=== PATIENT | female | born 1960 | race Caucasian/White ===

== ENCOUNTER 2021-12-05 09:42 | Observation (INO) | payer OTHER, SELFPAY ==
[2021-12-05] VITALS (24 sets, daily range): BP systolic 107–151; BP diastolic 76–101; PULSE 58–95; RESP 7–24; TEMP 36.6–37.4; O2SAT 97–98
--- NOTE | 2021-12-05 10:00 | W.ED.GENAD ---
Discharge Plan Disposition Patient Disposition: HOME Condition: Improving Discharge Details Chief Complaint: GenMedical Clinical Impression: DRESS syndrome, Petechial rash, Non-ST elevation HI (NSTEMI), UTI (urinary tract infection) Admit Date/Time: 12/05/21 15:11 Admit Provider: Toby Tracey Attending Provider: Toby Tracey Primary Care Provider: Unknown,Unknown ED Provider: Malou Garcia Discharge Instructions Activity:: Activity as Tolerated Equipment/Supplies:: No Equipment Needed Diet:: As Tolerated Discharge Orders Discharge Orders: Discharge Order (Routine); Ordered 12/06/21 Ordered By: Darby Barber Discharge Data Discharge Date/Time-TO BE ENTERED AT DEPARTURE: 12/05/21 15:50 Medical Decision Making Patient is a pleasant 61-year-old female presented with chief complaint of rash. She reports that 6 days ago she began having some dysuria, spoke with her primary care yesterday and nitrofurantoin. On the third day of taking the antibiotic, she developed rigors, sweats but no documented fever. She states that the dysuria has resolved but she did experience 2 episodes of incontinence at night which is atypical for her. However, she does report that she did take a sleeping aid which may have led to this. States that subsequently she woke up with a diffuse petechial rash that is since been resolving but does remain on her feet. States that when she initially became sick she had a large amount of vomiting, 1 loose stool. Patient has been traveling and is recently in [place]. She and her significant other did share food and significant other did not become ill. She denies any abdominal pain. No headaches. No visual changes. States that she has been feeling lightheaded over the past 3 days. Denies any chest pain or shortness of breath. Father has history of cardiac disease. Denies any vaginal discharge. With feeling well up until beginning the nitrofurantoin having her UTI with no systemic symptoms prior to this. Patient not anticoagulated, takes simvastatin daily. She denies any hematemesis, melena, hematochezia, hematuria. On exam, patient appears nontoxic. She is hypertensive at 151/101, pulse rate 95. She does appear slightly dry. She has notable petechial rash on the dorsal of both feet which spares the plantar surfaces. She denies any history of STI or new sexual contacts. No palmar rashes. The remaining rash appears to be dissipating although you can notice some small dark in, almost faint bruise-like areas across her torso which patient states had initially looked very similar to what on her feet. She reports that the rash is all been nontender and nonpruritic. No intraoral lesions. Concern at this time for possible reaction to medication. I have considered hemolytic uremic syndrome, dress syndrome, he based on patient's petechial rash that has been quite diffuse. However, is unusual that it is resolving so quickly. With the patient's travel and GI upset, this could be associated with Shiga toxin E. coli. We will hydrate the patient, obtain baseline blood work, EKG. with the patient's lightheadedness, and past family history, I did also consider ACS although patient denies any chest pain or shortness of breath. EKG reviewed by Dr. Menendez. No acute ischemic changes noted. Normal sinus rhythm. Contacted by the lab, patient has a troponin of 289. White count slightly low at 3.8. Hemoglobin hematocrit normal. Eosinophil count 30%. PT, PTT and INR normal. Potassium slightly low at 3.2 which are replenished. Creatinine is elevated at 1.1, do not have any previous for comparison. Will obtain ESR and CRP as well. I have requested consult with cardiology at [facility] for [place]. However, I am to hold off on any anticoagulants with her petechial rash. Her LFTs and platelets are within normal limit but I remain concerned for potential bleeding issue and so that further direction is appropriate Prior to moving forward with any type of antithrombotics. Spoke with Dr. Cardona with cardiology at [facility]. He advised likely not cardiac, recommended likely type 2. Recommended trending troponin. Advised for now, could hold off on any ASA, heparin. Consulted with dermatology, Dr. Vee, and reviewed [facility] case. She will review the case with her attending and call back. Spoke with Dr. Vee again. She advised that we could use antihistamines if patient has symptoms. Advised otherwise, no needed management as patient sounds to be improving. Repeat troponin downtrending. Discussed results, recommendations and diagnosis of likely DRESS syndrome with patient and her . Patient will need admission for continued monitoring of NSTEMI, thought to be type II in setting of DRESS. Will need echo tomorrow. Patient and agree to this plan. Urine was noted to have trace leukocytesterase, rare bacteria. She has no continued symptoms. With her current problems, I am hesitant to put her on abx, will hold off and wait for culture. Consulted with Dr. Tracey regarding admission, he agrees to admission of patient. HPI General Date/Time Provider Initiated Documentation: 12/05/21 10:00. Limitations to Documentation: no limitations. Information obtained by: patient and RN notes reviewed. History of Present Illness 61 year old F presents to the emergency department with the chief complaint of rash to bilateral feet, general malaise, vomiting, rigors, described as moderate, with intensity rated at 1 (patient denies pain at this time). and is localized to the left, right and lower extremity. Patient started experiencing this day(s) (3) and it has been constant (rash intially generalized, improving but present still on feet). No relieving factors improve symptom(s), No exacerbating factors reported . Patient notes diaphoresis, fever/chills, loss of appetite, malaise, nausea/vomiting and rash; denies confusion, chest pain, cough, headaches and shortness of breath. Patient did receive the following treatments prior to arrival, none Related Data Home Medications Medication Instructions Recorded Confirmed simvastatin 10 mg tablet 10 mg PO DAILY 12/05/21 12/05/21 amoxicillin 875 mg-potassium 1 tab PO BID #9 tabs 12/06/21 clavulanate 125 mg tablet fluconazole 200 mg tablet 200 mg PO DAILY #2 tabs 12/06/21 (Diflucan) Previous Rx's Medication Instructions Recorded amoxicillin 875 mg-potassium 1 tab PO BID #9 tabs 12/06/21 clavulanate 125 mg tablet fluconazole 200 mg tablet 200 mg PO DAILY #2 tabs 12/06/21 (Diflucan) Allergies Allergy/AdvReac Type Severity Reaction Status Date / Time nitrofurantoin AdvReac Unverified 12/05/21 23:15 [From Macrobid] General Stated Complaint: GenMedical AHSAN: 3 Review of Systems Constitutional Constitutional: Reports as per HPI and Denies headache(s) Eyes Eyes: Denies change in vision ENT Ears, Nose, Mouth, and Throat: Reports dizziness (lightheaded or off), Denies headache(s) and Reports disequilibrium Cardiovascular Cardiovascular: Reports as per HPI, Denies dyspnea and Denies dyspnea on exertion Respiratory Respiratory: Reports as per HPI, Denies chest congestion, Denies cough, Denies pain on inspiration, Denies pain with cough, Denies dyspnea and Denies dyspnea on exertion Gastrointestinal Gastrointestinal: Reports as per HPI and Denies abdominal pain Musculoskeletal Musculoskeletal: Reports as per HPI and Denies back pain Integumentary/Breasts Skin/Breast: Reports as per HPI Neurologic Neurologic: Reports as per HPI, Reports dizziness (lightheaded or off), Denies headache(s), Reports lack of coordination and Reports disequilibrium PFSH All Active Problems (Updated 12/06/21 @ 16:39 by ROBI Ma) DRESS syndrome (Acute) Petechial rash (Acute) Non-ST elevation HI (NSTEMI) (Acute) UTI (urinary tract infection) (Acute) Pulmonary infiltrates on CXR (Acute) Troponin level elevated (Acute) Discharge planning issues (Acute) DVT prophylaxis (Acute) Rash (Acute) Social History Smoking/Tobacco Use Status: Never Smoking risk assessment performed?: Yes Alcohol Intake: current Alcohol Intake frequency: a few times a week Drug use: Never Substance use type: does not use Do you feel safe at home: Yes Do you feel safe in your relationship?: Yes Exam Const General: cooperative, not healthy appearing, comfortable, no acute distress, well developed and ill appearing acutely Nutritional Appearance: well nourished and overweight Orientation: alert, awake and oriented x3 HENMT Head: normal to inspection Ears: hearing grossly normal bilaterally Mouth: oral mucosae normal (no rash intraorally) and moist mucous membranes Eyes General: appearance normal, both eyes and all related structures Neck Neck: normal visual inspection, no lymphadenopathy and no meningeal signs Chest Chest: normal inspection of the chest (faint, bruise like, small areas of discoloration diffusely across torso), normal palpation of entire chest wall and no crepitus Resp Effort & Inspection: normal respiratory effort, able to speak in complete sentences and no respiratory distress Auscultation: clear to auscultation bilaterally, no rales, no rhonchi and no wheezes Cardio Rate: regular rate Rhythm: regular rhythm Heart Sounds: S1 normal and S2 normal GI Inspection: normal to inspection (same faint discolorations), no edema and non-distended Palpation: soft, no hepatosplenomegaly, not firm, no guarding, not rigid and nontender Auscultation: normal bowel sounds Back/Spine/Pelvis Back: no CVA tenderness Thoracic/Lumbar Spine: thoracic and lumbar spine normal to inspection (same faint discolorations) Skin Rashes: rashes noted (petechial rash to dorsal bilateral feet, spares soles) and other (faint bruise-like rash torso, proximal upper extremity, BLE) Neuro General: patient alert, patient awake and patient oriented x3 Cognition: normal cognition Speech: speech normal Gait: normal gait Extrem General: abnormal to inspection (petechial rash dorsal aspect bilateral feet), capillary refill normal, no pedal edema, no calf tenderness and normal gait Psych Appearance: grossly normal and well kempt Mental Status: mental status grossly normal Speech and Movement: speech and movement normal Course Vital Signs Vital signs: Vital Signs Temperature 36.6 C 12/05/21 09:46 Pulse 95 H 12/05/21 09:46 Respiratory Rate 14 12/05/21 09:46 Blood Pressure 151/101 H 12/05/21 09:46 Pulse Oximetry 98 12/05/21 09:46 Temperature 36.6 C 12/05/21 09:46 Temperature Source Temporal Artery Scan 12/05/21 09:46 Pulse 95 H 12/05/21 09:46 Respiratory Rate 14 12/05/21 09:46 Respiratory Effort Non-Labored 12/05/21 09:52 Respiratory Depth Normal 12/05/21 09:52 Blood Pressure 151/101 H 12/05/21 09:46 Blood Pressure Position Supine 12/05/21 09:46 Pulse Oximetry 98 12/05/21 09:46 Oxygen Delivery Method Room Air 12/05/21 09:46 Oxygen Flow Rate 0 12/05/21 09:46 Pain Level 0 12/05/21 09:46 PAWSS Have you Been Recently Intoxicated or Drunk Within the Last 30 days?: Yes Have you Ever Experienced Previous Episodes of Alcohol Withdrawal?: No Have you ever Experienced Withdrawal Seizures?: No Have you ever Experienced Delirium Tremens(DT)s?: No Have you ever undergone Alcohol Rehabilitation Treatment (i.e, inpt ot outpatient treatment programs)?: No Have you ever Experienced Blackouts?: No Have you ever Combined Alcohol with other Downers within the last 90 days?: No Have you ever Combined Alcohol with any other Substance of Abuse during the last 90 days?: No Positive Blood Alcohol level on Presentation? [PCS.BAL]: No Evidence of Increased Autonomic Activity (i.e. HR>120, tremor, sweating, agitation, nausea)?: No Result: 1
--- NOTE | 2021-12-05 10:15 | RT.EKG_ITS ---
APPROVED REPORT Exam: Resting ECG Reason for Exam: lightheaded Patient Location: E HR:62 bpm ECG Measurements Heart Rate 62 AXIS OR 112 P 31 QRSd 99 QRS 85 QT 440 T 64 QTc 448 Conclusion Sinus rhythm...normal P axis, V-rate 60- 99 Low voltage, precordial leads...precordial leads <1.0mV. Sinus. Normal axis. No STEMI. I have reviewed and interpreted ECG and agree with software generated interpretation.
[2021-12-05 10:44] LABS: HCT 40.5 % (36.0-46.0); HGB 13.3 g/dL (11.2-15.7); MCH 30.3 pg (27.0-33.0); MCHC 32.8 % (32.0-36.0); MCV 92 fL (80-95); MPV 10.7 fL (8.0-11.0); Platelet Count 206 10^3/uL (130-400); RBC 4.39 10^6/uL (3.93-5.22); RDW 12.8 % (11.7-14.6); RDW-SD 43.5 fL; WBC 3.98 10^3/uL (4.4-10.8)
[2021-12-05] MEDS: Normal Saline 1,000 ML 1000 ML IV (10:45)
[2021-12-05 10:58] LABS: PTT Activated 26.5 sec (21.0-27.5); Prothrombin Time 10.5 sec (9.3-11.0)
[2021-12-05 11:01] LABS: ALT 46 U/L (14-59); AST 28 U/L (15-37); Albumin 3.1 g/dL (3.4-5.0); Alkaline Phosphatase 111 U/L (46-116); Anion Gap 9.4 mmol/L (3-11); BUN 22 mg/dL (7-18); Bilirubin, Total 0.3 mg/dL (0.2-1.0); CO2 26.6 mmol/L (21.0-32.0); CREATININE 1.1 mg/dL (0.55-1.02); Calcium 8.7 mg/dL (8.5-10.1); Chloride 102 mmol/L (98-107); Estimated GFR 50.84 (mL/min/1.73m2); Glucose 113 mg/dL (74-106); Magnesium 2.2 mg/dL (1.8-2.4); Potassium 3.2 mmol/L (3.5-5.1); Sodium 138 mmol/L (136-145); Total Protein 6.7 g/dL (6.4-8.2)
[2021-12-05 11:03] LABS: Troponin I 289 ng/L (<or=60)
[2021-12-05 11:04] LABS: Absolute Eosinophil Count 1.19 10^3/uL (0.0-0.7); Absolute Lymphocyte Count 1.67 10^3/uL (1.2-3.4); Absolute Monocyte Count 0.16 10^3/uL (0.1-0.8); Absolute Neutrophil Count 0.96 10^3/uL (1.2-6.7); Atypical Lymphocytes % 8
[2021-12-05 11:05] LABS: Diff Comment Manual Differential; RBC Morphology Normal
[2021-12-05 11:28] LABS: ESR 41 mm/hr (0-30)
[2021-12-05] MEDS: POTASSIUM CHLORIDE 20 MEQ/100 ML BAG 50 MEQ IVPB ×2 (11:37→20:03)
[2021-12-05 11:42] LABS: C-Reactive Protein 9.33 mg/dL (0.0-0.3)
[2021-12-05 11:47] LABS: Bilirubin Negative (Negative); Blood Negative (Negative); Clarity Clear (Clear); Glucose Negative (Negative); Ketones Negative (Negative); Leukocyte Esterase Trace (Negative); Nitrite Negative (Negative); Specific Gravity 1.015 (1.005-1.025); Urobilinogen 0.2 EU/dL (Up TO 0.2)
[2021-12-05 11:53] LABS: Bacteria Rare HPF (Negative); C & S Indicated? No/Sq. Contamination; Casts Negative LPF (Negative); Crystals Negative HPF (Negative); Epithelial Cells Moderate HPF (Negative); Mucus Negative (Negative); RBC Negative HPF (0-2); WBC 0-2 HPF (0-5)
--- NOTE | 2021-12-05 14:00 | DI.RAD_ITS ---
Exam(s) XR CHEST 2V PA LATERAL EXAM: XR CHEST 2V PA LATERAL CLINICAL HISTORY: elevated troponin. TECHNIQUE: 2D digital imaging was performed. COMPARISON: No exams were available for comparison FINDINGS: 2 views: Heart size is normal. The mediastinum is not widened. There is nodular infiltrate versus scarring in the left lung base adjacent to the left cardiac border , within the inferior lingular segment. No pleural effusion. There is also an asymmetric density in the right suprahilar region measuring 2.2 x 1.2 cm, possibly s ignificant nodule versus asymmetric density in the costochondral junction of the 1st rib. IMPRESSION: Bilateral lung findings as described above. Comparison a prior outside images would be helpful. Guzman thompson, consider follow-up CT scan DATA REPOSITORY: RADIATION DOSE DELIVERED:
[2021-12-05 14:01] LABS: Troponin I 268 ng/L (<or=60)
--- NOTE | 2021-12-05 14:15 | RT.EKG_ITS ---
APPROVED REPORT Exam: Resting ECG Reason for Exam: second ekg Patient Location: E HR:57 bpm ECG Measurements Heart Rate 57 AXIS AK 109 P 29 QRSd 97 QRS 86 QT 453 T 70 QTc 443 Conclusion Sinus bradycardia...rate< 60 Low voltage, precordial leads...precordial leads <1.0mV. Sinus. Normal axis. No STEMI. I have reviewed and interpreted ECG and agree with software generated interpretation.
[2021-12-05 14:22] LABS: Source Nasal/Nares
--- NOTE | 2021-12-05 14:53 | DI.VRAD_ITS ---
PROCEDURE INFORMATION: Exam: XR Chest Exam date and time: 12/05/2021 2:26 PM Age: 61 years old Clinical indication: Other: Elevated troponin TECHNIQUE: Imaging protocol: Radiologic exam of the chest. Views: 2 views. COMPARISON: No relevant prior studies available. FINDINGS: Airway: Patent Lungs: Unremarkable. No consolidation. Pleural spaces: Unremarkable. No pleural effusion. No pneumothorax. Heart/Mediastinum: Unremarkable. No cardiomegaly. Bones/joints: No acute skeletal abnormality or aggressive osseous lesion. IMPRESSION: No acute findings. Dictated and Authenticated by: Jeremiah Ashley MD. Ordering:BRENNEN Westfall MD
[2021-12-05 15:13] LABS: COVID-19 PCR Negative (Negative)
--- NOTE | 2021-12-05 15:20 | W.PM.HP.N ---
Date of service: 12/05/21 Time of Service: 15:20 Assessment and Plan Assessment and plan (1) Troponin level elevated: Status: Acute Assessment and plan: 289; 268; trend No CP, no sob (2) Rash: Status: Acute Assessment and plan: Assess Antihistamines (3) DVT prophylaxis: Status: Acute Assessment and plan: Teds (4) Discharge planning issues: Status: Acute Assessment and plan: Home after echo depending on lab & echo results. discussed with Dr Tracey History of Present Illness History of Present Illness Chief Complaint: Rash Consults Consult date: 12/06/21 Narrative: This is a very pleasant awake, alert and oriented, 61-year-old female patient that presented to [facility] ED with the chief complaint of a diffuse rash. 6 days prior she began having dysuria, she spoke with her PCP and was started on nitrofurantoin.? On the third day of taking the antibiotic, she developed rigors, sweats, but denies any fever. Yesterday she states she woke up with a diffuse petechia, non-tender, non-puriticl rash with some mild vomiting. Today she reports the dysuria has totally resolved, but notes something concerning and new to her is two episodes of urinary incontinence at night. She does report haven taken a sleeping aid both of those times. The rash has since been resolving but does remain on her dorsal feet.? She and her significant other did share food and significant other did not become ill.? She denies any abdominal pain.? No headaches.? No visual changes.? States that she has been feeling lightheaded over the past 3 days.? Denied any chest pain or shortness of breath.? Father has history of cardiac disease.? Denies any vaginal discharge.? She denies any hematemesis, melena, hematochezia, hematuria. She denies any history of STI or new sexual contacts.? No palmar rashes.?EKG was reviewed by Dr. Menendez.? No acute ischemic changes noted.? Normal sinus rhythm. Troponin of 289.? White count slightly low at 3.8.? Hemoglobin hematocrit normal.? Eosinophil count 30%.? PT, PTT and INR normal.? Potassium slightly low at 3.2 which was replenished.? Creatinine is elevated at 1.1, do not have any previous for comparison.? ESR , CRP 9.33. The ED provider [place] [facility] [place], they recommended type 1, trend troponin and did not recommend anticoagulation or aspirin. ? Her LFTs and platelets are within normal limit. She denies any history of STI or new sexual contacts. Will check CPK and myoglobin, urine is not dark or concentrated. Echo tomorrow. Repeat labs 12/06/21. Consult cardiology. She is being admitted for observation to the medical surgical unit. discussed with Dr Tracey Review of Systems All systems reviewed & are unremarkable except as noted in HPI and below PFSH All Active Problems (Updated 12/05/21 @ 17:28 by Darby Barber NP) Troponin level elevated (Acute) Discharge planning issues (Acute) DVT prophylaxis (Acute) Rash (Acute) Social History Smoking/Tobacco Use Status: Never Smoking risk assessment performed?: Yes Alcohol Intake: current Alcohol Intake frequency: a few times a week Drug use: Never Substance use type: does not use Do you feel safe at home: Yes Do you feel safe in your relationship?: Yes Meds Allergies and Home Medications Allergies Allergy/AdvReac Type Severity Reaction Status Date / Time No Known Allergies Allergy Unverified 12/05/21 09:51 Home Medications Medication Instructions Recorded Confirmed Type simvastatin 10 mg tablet 10 mg PO DAILY 12/05/21 12/05/21 History Exam Narrative Exam Narrative: This patient appears nontoxic.? BP 123/76, pulse rate 58.? She has notable petechial rash on the dorsum of both feet which spares the plantar surfaces.? No palmar rashes.? The remaining rash appears to be dissipating, there are some dark areas across her torso that look like faint brusiing, she reports her torso looked like her feet. No intraoral lesions, PERRL. Const General: cooperative, healthy appearing, comfortable and no acute distress Nutritional Appearance: average body habitus and well nourished Orientation: alert, awake and oriented x3 HENMT Head: normal to inspection Eyes General: appearance normal, both eyes and all related structures Neck Neck: normal visual inspection Chest Chest: normal inspection of the chest (except for faint rash ) Resp Effort & Inspection: normal respiratory effort and able to speak in complete sentences Auscultation: clear to auscultation bilaterally Cardio Jugular venous pressure: no JVD Rate: regular rate Rhythm: regular rhythm Heart Sounds: S1 normal and S2 normal GI Inspection: normal to inspection Auscultation: normal bowel sounds Back/Spine/Pelvis Back: no CVA tenderness Thoracic/Lumbar Spine: thoracic and lumbar spine normal to inspection Pelvis: no pain with anterior-posterior compression Skin Rashes: rashes noted (pitechial rash to bilat dorsal feet; torso) Hair: normal Nails: normal Neuro General: patient alert, patient awake, patient oriented x3 and no focal motor deficits Cranial Nerves: CN's II-XI intact bilaterally Cognition: normal cognition Speech: speech normal Gait: normal gait Motor: muscle tone normal throughout Sensory Exam: no sensory deficits noted Extrem General: normal to inspection Right upper extremity: normal to inspection Left upper extremity: normal to inspection Right lower extremity: normal to inspection (except dorsal foot rash), full ROM and normal capillary refill Left lower extremity: normal to inspection (except dorsal foot rash), full ROM and normal capillary refill Results Labs Result diagrams: 12/05/21 10:37 12/05/21 10:37 Labs: Laboratory Results - last 24 hr 12/05/21 12/05/21 12/05/21 10:37 10:37 10:37 WBC 3.98 L RBC 4.39 Hgb 13.3 Hct 40.5 MCV 92 MCH 30.3 MCHC 32.8 RDW 12.8 Plt Count 206 MPV 10.7 Immature Gran % 0.0 Neutrophils % 24.0 Lymphocytes % 34.0 Atypical Lymphs % 8 Monocytes % 4.0 Eosinophils % 30.0 Basophils % 0.0 Nucleated RBC % 0.0 Absolute Neutrophils 0.96 L Absolute Lymphocytes 1.67 Absolute Monocytes 0.16 Absolute Eosinophils 1.19 H Absolute Basophils 0.00 RBC Morphology Normal ESR PT 10.5 INR 1.0 APTT 26.5 Sodium 138 Potassium 3.2 L Chloride 102 Carbon Dioxide 26.6 Anion Gap 9.4 BUN 22 H Creatinine 1.1 H Estimated GFR/1.73 m2 50.84 Glucose 113 H Calcium 8.7 Magnesium 2.2 Total Bilirubin 0.3 AST 28 ALT 46 Alkaline Phosphatase 111 Troponin I 289 H* C-Reactive Protein Total Protein 6.7 Albumin 3.1 L Urine Color Urine Clarity Urine pH Ur Specific [place] Urine Protein Urine Ketones Urine Blood Urine Nitrite Urine Bilirubin Urine Urobilinogen Ur Leukocyte Esterase Urine RBC Urine WBC Ur Epithelial Cells Urine Crystals Urine Bacteria Urine Casts Urine Mucus Ur Culture Indicated? Urine Glucose COVID-19 Source 12/05/21 12/05/21 12/05/21 10:37 10:37 11:24 WBC RBC Hgb Hct MCV MCH MCHC RDW Plt Count MPV Immature Gran % Neutrophils % Lymphocytes % Atypical Lymphs % Monocytes % Eosinophils % Basophils % Nucleated RBC % Absolute Neutrophils Absolute Lymphocytes Absolute Monocytes Absolute Eosinophils Absolute Basophils RBC Morphology ESR 41 H PT INR APTT Sodium Potassium Chloride Carbon Dioxide Anion Gap BUN Creatinine Estimated GFR/1.73 m2 Glucose Calcium Magnesium Total Bilirubin AST ALT Alkaline Phosphatase Troponin I C-Reactive Protein 9.33 H Total Protein Albumin Urine Color Yellow Urine Clarity Clear Urine pH 6.0 Ur Specific [place] 1.015 Urine Protein Negative Urine Ketones Negative Urine Blood Negative Urine Nitrite Negative Urine Bilirubin Negative Urine Urobilinogen 0.2 Ur Leukocyte Esterase Trace H Urine RBC Negative Urine WBC 0-2 Ur Epithelial Cells Moderate Urine Crystals Negative Urine Bacteria Rare Urine Casts Negative Urine Mucus Negative Ur Culture Indicated? No/Sq. Contamination Urine Glucose Negative COVID-19 Source 12/05/21 12/05/21 13:37 14:17 WBC RBC Hgb Hct MCV MCH MCHC RDW Plt Count MPV Immature Gran % Neutrophils % Lymphocytes % Atypical Lymphs % Monocytes % Eosinophils % Basophils % Nucleated RBC % Absolute Neutrophils Absolute Lymphocytes Absolute Monocytes Absolute Eosinophils Absolute Basophils RBC Morphology ESR PT INR APTT Sodium Potassium Chloride Carbon Dioxide Anion Gap BUN Creatinine Estimated GFR/1.73 m2 Glucose Calcium Magnesium Total Bilirubin AST ALT Alkaline Phosphatase Troponin I 268 H* C-Reactive Protein Total Protein Albumin Urine Color Urine Clarity Urine pH Ur Specific [place] Urine Protein Urine Ketones Urine Blood Urine Nitrite Urine Bilirubin Urine Urobilinogen Ur Leukocyte Esterase Urine RBC Urine WBC Ur Epithelial Cells Urine Crystals Urine Bacteria Urine Casts Urine Mucus Ur Culture Indicated? Urine Glucose COVID-19 Source Nasal/Nares Last Vital Signs Temp 36.6 C 12/05/21 09:46 Pulse 58 L 12/05/21 14:00 Resp 18 12/05/21 14:50 BP 123/76 12/05/21 14:00 Pulse Ox 98 12/05/21 09:46 PAWSS Have you Been Recently Intoxicated or Drunk Within the Last 30 days?: Yes Have you Ever Experienced Previous Episodes of Alcohol Withdrawal?: No Have you ever Experienced Withdrawal Seizures?: No Have you ever Experienced Delirium Tremens(DT)s?: No Have you ever undergone Alcohol Rehabilitation Treatment (i.e, inpt ot outpatient treatment programs)?: No Have you ever Experienced Blackouts?: No Have you ever Combined Alcohol with other Downers within the last 90 days?: No Have you ever Combined Alcohol with any other Substance of Abuse during the last 90 days?: No Positive Blood Alcohol level on Presentation? [PCS.BAL]: No Evidence of Increased Autonomic Activity (i.e. HR>120, tremor, sweating, agitation, nausea)?: No Result: 1
[2021-12-05 17:49] LABS: Lab Add On Test DONE
[2021-12-05 18:20] LABS: Creatine Kinase 152 U/L (26-192)
[2021-12-05 19:07] LABS: Troponin I 246 ng/L (<or=60)
[2021-12-05] MEDS: Lactated Ringers 1,000 ML 75 ML IV (19:20)
[2021-12-05] MEDS: Simvastatin 10 MG TAB PO (20:03)
--- NOTE | 2021-12-06 | DI.CT_ITS ---
Exam(s) CT CHEST WO EXAM: CT CHEST WO CLINICAL HISTORY: nodule on CXR. TECHNIQUE: Multi planar reconstructions were performed. CONTRAST MATERIAL: None COMPARISON: CR,XR XR CHEST 2V PA LATERAL from 12/05/2021 FINDINGS: CHEST: LUNGS: There are mild increased markings in the anterior segment of the right upper lobe, probably co rrespond to the findings on chest radiograph yesterday. There also mild increased markings in the me dial segment of the right middle lobe and lateral basal segment of the right lower lobe. In the opposite-left lung there are mild increased markings in the superior segment of the left lower lobe and lingular segment, lingular segment markings corresponding to what is also seen on chest x-r ay. There also mild pleural based increased markings in the posterior basal segment of the left lowe r lobe. There are no pleural effusions on either side. MEDIASTINUM: There is no obvious hilar nor mediastinal adenopathy. There appear to be nodules in the left thyroid lobe. CARDIAC: Heart size upper normal. There is slight thickening of the inferior pericardium consistent with small amount of pericardial fluid..Caliber of the thoracic aorta is within normal limits. VISUALIZED UPPER ABDOMEN:No adrenal masses. OSSEOUS: No significant osseous lesions.. IMPRESSION: 1. Mild increased markings in both lungs as described above, correspond to the increased markings see n on yesterday's chest x-ray. These have the appearance of mild infiltrates more so than masses. Th ere are no so seated pleural effusions. No obvious hilar nor mediastinal adenopathy. 2. There are no pleural effusions. 3. There appears to be a small pericardial effusion. Heart size is upper normal. RADIATION DOSE DELIVERED: 780.61mGy.cm Total DLP DATA REPOSITORY: All CT scans at this facility are submitted to the National Radiology Data Registry (NRDR) Dose Index Registry (DIR) with the [employer] (ACR). RADIATION OPTIMIZATION: All CT scans at this facility use at least one of these dose optimization te chniques: automated exposure control; mA and/or kV adjustment per patient size (includes targeted exa ms where dose is matched to clinical indication); or iterative reconstruction.
--- NOTE | 2021-12-06 | DI.US_ITS ---
APPROVED REPORT EXAM: Comprehensive 2D, Doppler, and color-flow Echocardiogram Patient Location: In-Patient Room/Bed: [facility] Marketing Account Executive: Lesli Moore RDCS (AE) Indications: Elevated troponin, unexplained rash Other Information Study Quality: Adequate Conclusion Normal left ventricular wall thickness and chamber size. Estimated ejection fraction is 55 to 60%. There are no segmental wall motion abnormalities Normal right ventricular size and systolic function Both atria are normal in size There is no structural or hemodynamically significant valvular disease Estimated right ventricular systolic pressure is normal at 27 mmHg Wall motion Left Ventricle The left ventricle is normal size. The left ventricular systolic function is in the low normal range. The left ventricular ejection fraction is within the low normal range. There is normal left ventricu lar wall thickness. There is normal LV segmental wall motion. There is no ventricular septal defect v isualized. LVEF is 56%. Right Ventricle The right ventricle is normal size. The right ventricular systolic function is normal. The RVSP is 27 .1mmHg. Atria The left atrium size is normal. The right atrium size is normal. The interatrial septum is intact wit h no evidence for an atrial septal defect. Aortic Valve The aortic valve is normal in structure. Aortic valve is trileaflet. There is no aortic valvular sten osis. No aortic regurgitation is present. Mitral Valve The mitral valve is normal in structure. No evidence of mitral valve stenosis. Mild mitral regurgitat ion. Tricuspid Valve The tricuspid valve is normal in structure. There is no tricuspid valve stenosis. Trace tricuspid reg urgitation. Pulmonic Valve The pulmonary valve is normal in structure. There is no pulmonic valvular stenosis. There is no pulmo jay valvular regurgitation. Great Vessels The aortic root is normal in size. The ascending aorta is normal in size. The ascending aorta is norm al in size. Aortic arch is normal in caliber. IVC is normal in size and collapses >50% with inspirati on. Pericardium There is no pericardial effusion. 2D Dimensions IVSD d PLAX 0.97 cm F: 0.6-1.0 LV Vol A2C d MOD 126.3 mL LVPW d PLAX 0.95 cm F: 0.6 - 1.0 LV Vol A4C d MOD 171.4 mL LVID d PLAX 5.22 cm F: 3.8 - 5.2 LA vol/ BSA A2C s A-L 27.9 mL/m2 LVDs 3.65 cm F: 2.2 - 3.5 LA vol/ BSA A4C s A-L 25.6 mL/m2 Ao Root d 2.70 cm F: 2.7 - 3.3 LA Vol/ BSA Biplane s A-L 27.4 mL/m2 RA Area A4C 13.69 cm2 LA Area A4C s MOD 19.46 cm2 RA Vol/ BSA A4C s A-L 16.5 mL/m2 LA Area A2C s MOD 20.88 cm2 Ao Asc Diam d 3.27 cm F: 2.3 - 3.1 LV EF A4C MOD 56.0 % LV EF Teichholz 56.1 % LV EF A2C MOD 56.0 % LVEF (Byrne's) 55.76 % F: 54 - 74 LV EF Biplane MOD 55.8 % LV Volume 108.72 mL F: 46 - 106 SV 84.12 mL LV Volume Index 48.10 mL/m2 F: 29 - 61 SV Index 37.12 mL/m2 LV Vol Biplane MOD 150.9 mL FS 29.50 % M-Mode TAPSE 2.45 cm (M/F) >1.7 LV Diastology MV E' medial 0.116 (>0.07 m/s) E/A Ratio 1.1 LV E/e MED 7.60 (<14) MV E Vmax 0.88 (0.4-1.3 m/s) MV E' lateral 0.108 (>0.1 m/s) MV A Vmax 0.80 (0.4-1.3 m/s) LV E/e LAT 8.15 (<14) MV E/A Ratio 1.04 MV E/E' medial 7.61 MV E/E' lateral 8.18 Aortic Valve LVOT Area 3.47 cm2 AoV Area Vmax 3.09 cm2 LVOT Vmax 1.06 m/s AoV Area/ BSA (Vmax) 1.36 cm2/m2 LVOT Mean Jose. 0.69 m/s CITLALLI Mean Jose. 2.68 cm2 LVOT Peak Grad 4.5 mmHg CITLALLI Mean Jose. Index 1.18 cm2/m2 LVOT Mean Grad 2.2 mmHg LVOT VTI 0.246 m LVOT Diam s 2.10 cm AoV Vmax 1.19 m/s Velocity Ratio 0.89 AoV Mean Jose. 0.89 m/s AoV Peak Grad 5.7 mmHg LVOT SV 85.33 mL AoV Mean Grad 3.5 mmHg AoV VTI 0.268 m AoV Area VTI 3.18 cm2 AoV Area/ BSA (VTI) 1.40 cm/m2 Mitral Valve MV DT 164 (160-240 msec) MR Vmax 5.01 m/s MV PHT 48 msec MR VTI 1.809 m MV Area PHT 4.62 cm2 MR Peak Grad 100.4 mmHg MV VTI 0.320 m MR Mean Grad 77.5 mmHg MV VTI Annulus 0.313 m MR PISA Radius 0.58 cm MV Area VTI 2.62 (4.0-6.0 cm2) MR EROA 0.15 cm2 MR Aliasing Velocity 0.35 m/s MR PISA 2.09 cm2 Pulmonary Valve PV Vmax 0.79 (0.5-1.5 m/s) RVOT Peak Gr. 1.47 mmHg PV Peak Grad 2.5 mmHg RVOT Mean Gr. 0.85 mmHg PV Mean Grad 1.7 mmHg RVOT VTI 0.117 m PV VTI 0.173 m RVOT Vmax 0.61 m/s Tricuspid Valve TR Peak Grad 24.1 mmHg TR Vmax 2.46 m/s RA Pressure 3.00 mmHg RVSP (TR) 27.1 mmHg
[2021-12-06 03:10] VITALS: BP 126/81; PULSE 69; RESP 18; TEMP 36.7; O2SAT 98
[2021-12-06 06:56] VITALS: PULSE 81
[2021-12-06] MEDS: Lactated Ringers 1,000 ML 75 ML IV (06:59)
[2021-12-06 07:04] LABS: Abs Immature Grans 0.01 10^3/uL (0.0-0.06); Absolute Basophil Count 0.04 10^3/uL (0.0-0.2); Absolute Eosinophil Count 1.36 10^3/uL (0.0-0.7); Absolute Lymphocyte Count 2.49 10^3/uL (1.2-3.4); Absolute Monocyte Count 0.38 10^3/uL (0.1-0.8); Absolute Neutrophil Count 1.14 10^3/uL (1.2-6.7); Basophils % 0.7; Eosinophils % 25.1; HCT 37.1 % (36.0-46.0); HGB 11.9 g/dL (11.2-15.7); Immature Grans % 0.2; Lymphocytes % 45.9; MCH 29.8 pg (27.0-33.0); MCHC 32.1 % (32.0-36.0); MCV 93 fL (80-95); MPV 10.5 fL (8.0-11.0); Neutrophils % 21.1; Platelet Count 225 10^3/uL (130-400); RBC 3.99 10^6/uL (3.93-5.22); RDW-SD 44.4 fL; WBC 5.42 10^3/uL (4.4-10.8)
[2021-12-06 07:20] VITALS: BP 126/83; PULSE 62; RESP 16; TEMP 36.8; O2SAT 98
[2021-12-06 07:24] LABS: ALT 36 U/L (14-59); AST 18 U/L (15-37); Alkaline Phosphatase 98 U/L (46-116); BUN 19 mg/dL (7-18); Bilirubin, Total 0.3 mg/dL (0.2-1.0); Calcium 8.7 mg/dL (8.5-10.1); Chloride 105 mmol/L (98-107); Estimated GFR 56.75 (mL/min/1.73m2); Glucose 103 mg/dL (74-106); Magnesium 2.2 mg/dL (1.8-2.4); Potassium 3.9 mmol/L (3.5-5.1); Sodium 139 mmol/L (136-145); Total Protein 6.4 g/dL (6.4-8.2)
[2021-12-06 07:27] LABS: Troponin I 178 ng/L (<or=60)
--- NOTE | 2021-12-06 08:11 | W.CARDCONSUL ---
Date of service: 12/06/21 Time of Service: 08:11 Assessment and Plan Assessment and plan (1) Troponin level elevated: Status: Acute Assessment and plan: Patient has had mild elevated troponin. Her EKG is normal. There were no symptoms suggestive of angina. Reportedly an echocardiogram will be performed today. In the absence of new or concerning findings or symptoms, I think the patient could have an outpatient ischemic evaluation such as a stress echocardiogram Beyond that I have no specific concerns or recommendations History of Present Illness History of Present Illness Chief Complaint: Rash Narrative: This is a 61-year-old woman who presented to the emergency room because of a rash. For unclear reasons, her work-up included a troponin which was mildly elevated. Her EKG was normal. There were no symptoms suggestive of angina. She has no past history of cardiac illness Troponins have been gradually decreasing Only 1 EKG is available for review Consults Consult date: 12/06/21 Requesting physician: Darby Barber Review of Systems Narrative: Patient was not interviewed PFSH All Active Problems (Updated 12/05/21 @ 17:28 by Darby Barber NP) Troponin level elevated (Acute) Discharge planning issues (Acute) DVT prophylaxis (Acute) Rash (Acute) Social History Smoking/Tobacco Use Status: Never Smoking risk assessment performed?: Yes Alcohol Intake: current Alcohol Intake frequency: a few times a week Drug use: Never Substance use type: does not use Do you feel safe at home: Yes Do you feel safe in your relationship?: Yes Exam Narrative Exam Narrative: Patient was not examined Results Last Vital Signs Temp 36.7 C 12/06/21 03:10 Pulse 69 12/06/21 03:10 Resp 18 12/06/21 03:10 BP 126/81 12/06/21 03:10 Pulse Ox 98 12/06/21 03:10 Labs Result diagrams: 12/06/21 06:25 12/06/21 06:25 Labs: Laboratory Results - last 24 hr 12/05/21 12/05/21 12/05/21 10:37 10:37 10:37 WBC 3.98 L RBC 4.39 Hgb 13.3 Hct 40.5 MCV 92 MCH 30.3 MCHC 32.8 RDW 12.8 Plt Count 206 MPV 10.7 Immature Gran % 0.0 Neutrophils % 24.0 Lymphocytes % 34.0 Atypical Lymphs % 8 Monocytes % 4.0 Eosinophils % 30.0 Basophils % 0.0 Nucleated RBC % 0.0 Absolute Neutrophils 0.96 L Absolute Lymphocytes 1.67 Absolute Monocytes 0.16 Absolute Eosinophils 1.19 H Absolute Basophils 0.00 RBC Morphology Normal ESR PT 10.5 INR 1.0 APTT 26.5 Sodium 138 Potassium 3.2 L Chloride 102 Carbon Dioxide 26.6 Anion Gap 9.4 BUN 22 H Creatinine 1.1 H Estimated GFR/1.73 m2 50.84 Glucose 113 H Calcium 8.7 Magnesium 2.2 Total Bilirubin 0.3 AST 28 ALT 46 Alkaline Phosphatase 111 Creatine Kinase Troponin I 289 H* C-Reactive Protein Total Protein 6.7 Albumin 3.1 L Urine Color Urine Clarity Urine pH Ur Specific [place] Urine Protein Urine Ketones Urine Blood Urine Nitrite Urine Bilirubin Urine Urobilinogen Ur Leukocyte Esterase Urine RBC Urine WBC Ur Epithelial Cells Urine Crystals Urine Bacteria Urine Casts Urine Mucus Ur Culture Indicated? Urine Glucose COVID-19 Source SARS-CoV-2 (PCR) Add-On Test Request 12/05/21 12/05/21 12/05/21 10:37 10:37 11:24 WBC RBC Hgb Hct MCV MCH MCHC RDW Plt Count MPV Immature Gran % Neutrophils % Lymphocytes % Atypical Lymphs % Monocytes % Eosinophils % Basophils % Nucleated RBC % Absolute Neutrophils Absolute Lymphocytes Absolute Monocytes Absolute Eosinophils Absolute Basophils RBC Morphology ESR 41 H PT INR APTT Sodium Potassium Chloride Carbon Dioxide Anion Gap BUN Creatinine Estimated GFR/1.73 m2 Glucose Calcium Magnesium Total Bilirubin AST ALT Alkaline Phosphatase Creatine Kinase Troponin I C-Reactive Protein 9.33 H Total Protein Albumin Urine Color Yellow Urine Clarity Clear Urine pH 6.0 Ur Specific [place] 1.015 Urine Protein Negative Urine Ketones Negative Urine Blood Negative Urine Nitrite Negative Urine Bilirubin Negative Urine Urobilinogen 0.2 Ur Leukocyte Esterase Trace H Urine RBC Negative Urine WBC 0-2 Ur Epithelial Cells Moderate Urine Crystals Negative Urine Bacteria Rare Urine Casts Negative Urine Mucus Negative Ur Culture Indicated? No/Sq. Contamination Urine Glucose Negative COVID-19 Source SARS-CoV-2 (PCR) Add-On Test Request 12/05/21 12/05/21 12/05/21 11:32 13:37 14:17 WBC RBC Hgb Hct MCV MCH MCHC RDW Plt Count MPV Immature Gran % Neutrophils % Lymphocytes % Atypical Lymphs % Monocytes % Eosinophils % Basophils % Nucleated RBC % Absolute Neutrophils Absolute Lymphocytes Absolute Monocytes Absolute Eosinophils Absolute Basophils RBC Morphology ESR PT INR APTT Sodium Potassium Chloride Carbon Dioxide Anion Gap BUN Creatinine Estimated GFR/1.73 m2 Glucose Calcium Magnesium Total Bilirubin AST ALT Alkaline Phosphatase Creatine Kinase 152 Troponin I 268 H* C-Reactive Protein Total Protein Albumin Urine Color Urine Clarity Urine pH Ur Specific [place] Urine Protein Urine Ketones Urine Blood Urine Nitrite Urine Bilirubin Urine Urobilinogen Ur Leukocyte Esterase Urine RBC Urine WBC Ur Epithelial Cells Urine Crystals Urine Bacteria Urine Casts Urine Mucus Ur Culture Indicated? Urine Glucose COVID-19 Source Nasal/Nares SARS-CoV-2 (PCR) Negative Add-On Test Request 12/05/21 12/05/21 12/06/21 18:15 Unknown 06:25 WBC RBC Hgb Hct MCV MCH MCHC RDW Plt Count MPV Immature Gran % Neutrophils % Lymphocytes % Atypical Lymphs % Monocytes % Eosinophils % Basophils % Nucleated RBC % Absolute Neutrophils Absolute Lymphocytes Absolute Monocytes Absolute Eosinophils Absolute Basophils RBC Morphology ESR PT INR APTT Sodium 139 Potassium 3.9 Chloride 105 Carbon Dioxide 25.0 Anion Gap 9.0 BUN 19 H Creatinine 1.0 Estimated GFR/1.73 m2 56.75 Glucose 103 Calcium 8.7 Magnesium 2.2 Total Bilirubin 0.3 AST 18 ALT 36 Alkaline Phosphatase 98 Creatine Kinase Troponin I 246 H* 178 H* C-Reactive Protein Total Protein 6.4 Albumin 3.0 L Urine Color Urine Clarity Urine pH Ur Specific [place] Urine Protein Urine Ketones Urine Blood Urine Nitrite Urine Bilirubin Urine Urobilinogen Ur Leukocyte Esterase Urine RBC Urine WBC Ur Epithelial Cells Urine Crystals Urine Bacteria Urine Casts Urine Mucus Ur Culture Indicated? Urine Glucose COVID-19 Source SARS-CoV-2 (PCR) Add-On Test Request DONE 12/06/21 06:25 WBC 5.42 RBC 3.99 Hgb 11.9 Hct 37.1 MCV 93 MCH 29.8 MCHC 32.1 D RDW 13.0 Plt Count 225 MPV 10.5 Immature Gran % 0.2 Neutrophils % 21.1 Lymphocytes % 45.9 Atypical Lymphs % Monocytes % 7.0 Eosinophils % 25.1 Basophils % 0.7 Nucleated RBC % 0.0 Absolute Neutrophils 1.14 L Absolute Lymphocytes 2.49 Absolute Monocytes 0.38 Absolute Eosinophils 1.36 H Absolute Basophils 0.04 RBC Morphology ESR PT INR APTT Sodium Potassium Chloride Carbon Dioxide Anion Gap BUN Creatinine Estimated GFR/1.73 m2 Glucose Calcium Magnesium Total Bilirubin AST ALT Alkaline Phosphatase Creatine Kinase Troponin I C-Reactive Protein Total Protein Albumin Urine Color Urine Clarity Urine pH Ur Specific [place] Urine Protein Urine Ketones Urine Blood Urine Nitrite Urine Bilirubin Urine Urobilinogen Ur Leukocyte Esterase Urine RBC Urine WBC Ur Epithelial Cells Urine Crystals Urine Bacteria Urine Casts Urine Mucus Ur Culture Indicated? Urine Glucose COVID-19 Source SARS-CoV-2 (PCR) Add-On Test Request
--- NOTE | 2021-12-06 08:16 | NUR.NOTE ---
Nursing Note: critical value Troponin, 178, read back, SCARLETT, RN notified
[2021-12-06] MEDS: Loratidine 10 MG TAB PO (08:17)
[2021-12-06 09:45] VITALS: PULSE 74
--- NOTE | 2021-12-06 10:03 | INITIAL_ITS ---
- If Service Date Differs Date of service: 12/06/21 Time of Service: 10:16 Care Management Initial Assess REASON FOR HOSPITALIZATION:: Rash, Elevated troponin PAST MEDICAL HISTORY/PAST SURGICAL HISTORY:: All Active Problems. Troponin level elevated (Acute). Discharge planning issues (Acute). DVT prophylaxis (Acute). Rash (Acute) PREVIOUS FUNCTIONAL STATUS/SOCIAL/FAMILY SUPPORTS:: Cherelle lives in [place], [place] with her life partner. She is independent at baseline. CURRENT FUNCTIONAL STATUS:: Cherelle was sitting up in her room talking with a visitor. Per report, Omari will be discharged today with no new services. CM will continue to follow. ADVANCE DIRECTIVES:: Not on file at [facility]. Has patient been provided with info about the portal/API?: Yes Did the patient sign up for the portal?: No CODE STATUS:: Full Code INSURANCE COVERAGE / FINANCIAL ISSUES:: [employer] CURRENT HOME/COMMUNITY SERVICES/EQUIPMENT:: No current services or equipment. PRIMARY CARE PHYSICIAN:: Not local. POTENTIAL DISCHARGE NEEDS:: Follow up with PCP. PATIENT/FAMILY EDUCATION NEEDS:: Review discharge instructions and limitations, discussion of self care needs including ask me three. ANTICIPATED BARRIERS TO DISCHARGE:: None. TRANSPORTATION:: Via private vehicle by partner. PLAN:: Anticipate Cherelle will return home when medically cleared. Her partner will drive her home once medically cleared. She will follow up with her PCP and discharge plan of care. CM will continue to follow.
[2021-12-06 11:17] VITALS: BP 124/83; PULSE 64; RESP 17; TEMP 37.1; O2SAT 98
--- NOTE | 2021-12-06 11:35 | DSE_ITS ---
Date of service: 12/06/21 Time of Service: 11:35 DS: Diagnosis Discharge Diagnosis (1) Troponin level elevated: Status: Resolved Discharge Plan Disposition Patient Disposition: HOME Condition: Improving Discharge Details Reason For Visit: Rash Admit Date/Time: 12/05/21 15:11 Admit Provider: Toby Tracey Attending Provider: Toby Tracey Primary Care Provider: Unknown,Unknown Hospital Course Hospital Course: This is a very pleasant awake, alert and oriented, 61-year-old female patient that presented to [facility] ED with the chief complaint of a diffuse rash. 6 days prior she began having? dysuria, she spoke with her PCP and was started on nitrofurantoin.? On the third day of taking the antibiotic, she developed rigors, sweats, but denies any fever.? Yesterday she states she woke up with a diffuse petechia, non-tender, non-puriticl rash with some mild vomiting. Today she reports the dysuria has totally resolved, but notes something concerning and new to her is two episodes of urinary incontinence at night.? She does report haven taken a sleeping aid both of those times.? The rash has since been resolving but does remain on her dorsal feet.? She and her significant other did share food and significant other did not become ill.? She denies any abdominal pain.? No headaches.? No visual changes.? States that she has been feeling lightheaded over the past 3 days.? Denied any chest pain or shortness of breath.? Father has history of cardiac disease.? Denies any vaginal discharge.? She denies any hematemesis, melena, hematochezia, hematuria. She denies any history of STI or new sexual contacts.? No palmar rashes.?EKG was reviewed by Dr. Menendez.? No acute ischemic changes noted.? Normal sinus rhythm.? Troponin of 289.? White count slightly low at 3.8.? Hemoglobin hematocrit normal.? Eosinophil count 30%.? PT, PTT and INR normal.? Potassium slightly low at 3.2 which was replenished.? Creatinine is elevated at 1.1, do not have any previous for comparison.? ESR , CRP 9.33. The ED provider consulted with cardiology at [facility] for NSTEMI, they recommended type 1, trend troponin and did not recommend anticoagulation or aspirin. ? Her LFTs and platelets are within normal limit. She denies any history of STI or new sexual contacts.? Admitted to medical surgical unit for observation. Cardiology was consulted, echo completed, her chest xray showed some nodules requiring further investigation. A chest CT was done. She will have a follow up chest xray in one month. She is traveling and will be in [place] in 6 months. We did recommend a repeat CT of the chest in 6 months. She said she would arrange that in [place]. Discharged to home with family. Started augmentin for 5 days for potential pneumonia and told to never take nitrofurantoin again. Discussed with Dr. Tracey Home Meds and New Rx's Prescriptions: New amoxicillin-pot clavulanate 875-125 mg tablet 1 tab PO BID Qty: 9 0RF fluconazole [Diflucan] 200 mg tablet 200 mg PO DAILY Qty: 2 0RF Continued simvastatin 10 mg Tablet 10 mg PO DAILY Discharge Instructions Instructions: Acute Rash (DC), High Troponin Levels (GEN) Additional Instructions: We suspect you have DRESS Syndrome related to nitrofurantoin.Do not take nitrofurantoin ever again (also know as Macrobid). DRESS Syndrome is characterized by fever, rash, abnormal blood test (eosinophilia) and swollen lymph nodes. Generally this starts 2-8 weeks after taking the medication, but can be sooner. It is ok to take benadryl, an antihistamine as recommended by the safety security officer. Follow up chest xray in one month has been ordered here at [facility] radiology department. There are some outstanding labs, if any are worrisome we will be in touch with you. Augmentin - take twice a day for 5 days. You received your first dose here. - [facility]. Any worsening rash, difficulty breathing, chest pain; go to an emergency department near you. Stand Alone Forms: Nursing Discharge Form Activity:: Activity as Tolerated Equipment/Supplies:: No Equipment Needed Diet:: As Tolerated Discharge Orders Discharge Orders: Discharge Order (Routine); Ordered 12/06/21 Ordered By: Darby Barber Other Ambulatory Orders: XR chest 2V PA & lateral (Routine) Timeframe: 1 Month Location: None Selected Ordered By: Darby Barber Discharge Data Discharge Date/Time-TO BE ENTERED AT DEPARTURE: 12/06/21 14:04 DS: Summary Time Spent with Patient providing and/or coordinating discharge services: Greater than 30 minutes Status at Discharge Functional status at discharge: independent ambulation Overall status at discharge: patient is progressing back to baseline Mental Status: mental status grossly normal Speech and Movement: speech and movement normal Mood: congruent mood Affect: normal affect Exam Psych Mental Status: mental status grossly normal Speech and Movement: speech and movement normal Mood: congruent mood Affect: normal affect DS: Data Vitals/I&O Vitals and I&O: Vital Signs Temperature 37.1 C 12/06/21 11:17 Temperature Source Tympanic 12/06/21 11:17 Pulse 64 12/06/21 11:17 Pulse Rhythm Regular 12/06/21 05:00 Pulse 93 H 12/05/21 14:50 Respiratory Rate 17 12/06/21 11:17 Respiratory Effort Non-Labored 12/06/21 05:00 Respiratory Depth Normal 12/06/21 05:00 Respiratory Pattern Normal 12/06/21 05:00 Blood Pressure 124/83 12/06/21 11:17 Blood Pressure Mean 88 12/05/21 14:00 Blood Pressure Position Supine 12/05/21 09:46 Pulse Oximetry 98 12/06/21 11:17 Oxygen Delivery Method Room Air 12/06/21 11:17 Oxygen Flow Rate 0 12/06/21 11:17 Pain Level 0 12/06/21 11:30 Comment 12/06/21 11:30 Intake & Output 12/05/21 12/05/21 12/06/21 11:59 23:59 11:59 Intake Total 1000 / 1340 340 / 1340 1776.25 / 1776.25 Balance 1000 / 1340 340 / 1340 1776.25 / 1776.25 Weight 69.853 kg 250 kg 116.1 kg Intake: IV 1000 / 1100 100 / 1100 986.25 / 986.25 Oral 240 / 240 790 / 790 Other: Urine Appearance Clear Clear Comment voids independently Voiding Methods Toilet Data Completed and Pending Labs on day of discharge: Labs from last 24 hours 12/06/21 12/06/21 12/05/21 06:25 06:25 Unknown WBC 5.42 RBC 3.99 Hgb 11.9 Hct 37.1 MCV 93 MCH 29.8 MCHC 32.1 D RDW 13.0 Plt Count 225 MPV 10.5 Immature Gran % 0.2 Neutrophils % 21.1 Lymphocytes % 45.9 Monocytes % 7.0 Eosinophils % 25.1 Basophils % 0.7 Nucleated RBC % 0.0 Absolute Neutrophils 1.14 L Absolute Lymphocytes 2.49 Absolute Monocytes 0.38 Absolute Eosinophils 1.36 H Absolute Basophils 0.04 Sodium 139 Potassium 3.9 Chloride 105 Carbon Dioxide 25.0 Anion Gap 9.0 BUN 19 H Creatinine 1.0 Estimated GFR/1.73 m2 56.75 Glucose 103 Calcium 8.7 Magnesium 2.2 Total Bilirubin 0.3 AST 18 ALT 36 Alkaline Phosphatase 98 Creatine Kinase Myoglobin Troponin I 178 H* C-Reactive Protein Total Protein 6.4 Albumin 3.0 L Urine Color Urine Clarity Urine pH Ur Specific [place] Urine Protein Urine Ketones Urine Blood Urine Nitrite Urine Bilirubin Urine Urobilinogen Ur Leukocyte Esterase Urine RBC Urine WBC Ur Epithelial Cells Urine Crystals Urine Bacteria Urine Casts Urine Mucus Ur Culture Indicated? Urine Glucose IgE A.phagocytophil DNA PCR B. divergens/MO-1 PCR Babesia duncani (PCR) Babesia microti DNA PCR Borrelia (PCR) Lyme Disease Antibody COVID-19 Source SARS-CoV-2 (PCR) E.chaffeensis DNA (PCR) E.ewingii/canis DNA PCR E. muris-like DNA (PCR) Add-On Test Request DONE 12/05/21 12/05/21 12/05/21 18:15 14:17 13:37 WBC RBC Hgb Hct MCV MCH MCHC RDW Plt Count MPV Immature Gran % Neutrophils % Lymphocytes % Monocytes % Eosinophils % Basophils % Nucleated RBC % Absolute Neutrophils Absolute Lymphocytes Absolute Monocytes Absolute Eosinophils Absolute Basophils Sodium Potassium Chloride Carbon Dioxide Anion Gap BUN Creatinine Estimated GFR/1.73 m2 Glucose Calcium Magnesium Total Bilirubin AST ALT Alkaline Phosphatase Creatine Kinase Myoglobin Troponin I 246 H* 268 H* C-Reactive Protein Total Protein Albumin Urine Color Urine Clarity Urine pH Ur Specific [place] Urine Protein Urine Ketones Urine Blood Urine Nitrite Urine Bilirubin Urine Urobilinogen Ur Leukocyte Esterase Urine RBC Urine WBC Ur Epithelial Cells Urine Crystals Urine Bacteria Urine Casts Urine Mucus Ur Culture Indicated? Urine Glucose IgE A.phagocytophil DNA PCR B. divergens/MO-1 PCR Babesia duncani (PCR) Babesia microti DNA PCR Borrelia (PCR) Lyme Disease Antibody COVID-19 Source Nasal/Nares SARS-CoV-2 (PCR) Negative E.chaffeensis DNA (PCR) E.ewingii/canis DNA PCR E. muris-like DNA (PCR) Add-On Test Request 12/05/21 12/05/21 12/05/21 11:32 11:32 11:32 WBC RBC Hgb Hct MCV MCH MCHC RDW Plt Count MPV Immature Gran % Neutrophils % Lymphocytes % Monocytes % Eosinophils % Basophils % Nucleated RBC % Absolute Neutrophils Absolute Lymphocytes Absolute Monocytes Absolute Eosinophils Absolute Basophils Sodium Potassium Chloride Carbon Dioxide Anion Gap BUN Creatinine Estimated GFR/1.73 m2 Glucose Calcium Magnesium Total Bilirubin AST ALT Alkaline Phosphatase Creatine Kinase 152 Myoglobin Pending Troponin I C-Reactive Protein Total Protein Albumin Urine Color Urine Clarity Urine pH Ur Specific [place] Urine Protein Urine Ketones Urine Blood Urine Nitrite Urine Bilirubin Urine Urobilinogen Ur Leukocyte Esterase Urine RBC Urine WBC Ur Epithelial Cells Urine Crystals Urine Bacteria Urine Casts Urine Mucus Ur Culture Indicated? Urine Glucose IgE A.phagocytophil DNA PCR Pending B. divergens/MO-1 PCR Pending Babesia duncani (PCR) Pending Babesia microti DNA PCR Pending Borrelia (PCR) Pending Lyme Disease Antibody Pending COVID-19 Source SARS-CoV-2 (PCR) E.chaffeensis DNA (PCR) Pending E.ewingii/canis DNA PCR Pending E. muris-like DNA (PCR) Pending Add-On Test Request 12/05/21 12/05/21 12/05/21 11:24 10:37 06:25 WBC RBC Hgb Hct MCV MCH MCHC RDW Plt Count MPV Immature Gran % Neutrophils % Lymphocytes % Monocytes % Eosinophils % Basophils % Nucleated RBC % Absolute Neutrophils Absolute Lymphocytes Absolute Monocytes Absolute Eosinophils Absolute Basophils Sodium Potassium Chloride Carbon Dioxide Anion Gap BUN Creatinine Estimated GFR/1.73 m2 Glucose Calcium Magnesium Total Bilirubin AST ALT Alkaline Phosphatase Creatine Kinase Myoglobin Troponin I C-Reactive Protein 9.33 H Total Protein Albumin Urine Color Yellow Urine Clarity Clear Urine pH 6.0 Ur Specific [place] 1.015 Urine Protein Negative Urine Ketones Negative Urine Blood Negative Urine Nitrite Negative Urine Bilirubin Negative Urine Urobilinogen 0.2 Ur Leukocyte Esterase Trace H Urine RBC Negative Urine WBC 0-2 Ur Epithelial Cells Moderate Urine Crystals Negative Urine Bacteria Rare Urine Casts Negative Urine Mucus Negative Ur Culture Indicated? No/Sq. Contamination Urine Glucose Negative IgE Pending A.phagocytophil DNA PCR B. divergens/MO-1 PCR Babesia duncani (PCR) Babesia microti DNA PCR Borrelia (PCR) Lyme Disease Antibody COVID-19 Source SARS-CoV-2 (PCR) E.chaffeensis DNA (PCR) E.ewingii/canis DNA PCR E. muris-like DNA (PCR) Add-On Test Request PFSH All Active Problems (Updated 12/07/21 @ 00:09 by KATHI MCPHERSON) DRESS syndrome (Acute) Petechial rash (Acute) Non-ST elevation AR (NSTEMI) (Acute) UTI (urinary tract infection) (Acute) Pulmonary infiltrates on CXR (Acute) Rash (Acute) Social History Smoking/Tobacco Use Status: Never Smoking risk assessment performed?: Yes Alcohol Intake: current Alcohol Intake frequency: a few times a week Drug use: Never Substance use type: does not use Do you feel safe at home: Yes Do you feel safe in your relationship?: Yes
[2021-12-06] MEDS: Amoxicillin 875/Clav. 125 TAB PO (12:38)
--- NOTE | 2021-12-06 16:26 | PDOC.CMDIS ---
- If Service Date Differs Date of service: 12/06/21 Time of Service: 16:26 LACE Index Scoring Tool - Questions: Length of Stay (in days): 1 Acuity (Admit via E.D.?): Yes E.D. Visits: 1 - Answers: Total Score: 5 Risk of Readmission: Low Risk Care Management Discharge Reason for Hospitalization: Rash, Elevated troponin Discharge Plan: Cherelle was discharged home with no new services. Her partner drove her home via private vehicle. She will follow up with her PCP and discharge plan of care. Patient/Family Education Needs: Review discharge instructions and limitations, discussion of self care needs including ask me three.
[2021-12-07 12:24] LABS: IgE 4 IU/mL (<158)
[2021-12-08 10:15] LABS: Lyme Ab w Rflx to Lyme Confirm Negative (Negative)
[2021-12-08 11:22] LABS: Myoglobin, S 59 mcg/L (<=90)
[2021-12-08 22:24] LABS: Anaplasma phagocytophilum Negative (Negative); B. miyamotoi PCR Negative (Negative); Babesia divergens/MO-1 Negative (Negative); Babesia duncani Negative (Negative); Babesia microti Negative (Negative); Ehrlichia chaffeensis Negative (Negative); Ehrlichia ewingii/canis Negative (Negative); Ehrlichia muris eauclairensis Negative (Negative)
== END 2021-12-06 14:04 | disposition home or self-care (01) ==
LOC: ER 11:22 → MS 15:53
PROVIDERS: Nurse Practitioner Family; Admitting Provider Internal Medicine; Emergency Provider Physician Assistant; Visit Provider Internal Medicine
DX: R21 Rash and other nonspecific skin eruption (principal); R74.8 Abnormal levels of other serum enzymes; R91.8 Other nonspecific abnormal finding of lung field; Z82.49 Family history of ischemic heart disease and other diseases of the circulatory system; R42 Dizziness and giddiness; Z20.822 Contact with and (suspected) exposure to COVID-19; I10 Essential (primary) hypertension
CPT/HCPCS: 36415; 71250; 80053; 82550; 85652; 87635; 87798; 93005; 96361; 96365; 96366; 96374; 99284; 99285; 71046; 81003; 81015; 82785; 83735; 83874; 84484; 85025; 85610; 85730; 86140; 86618; 93010; 93306; 99217; 99219; G0378; J3480

== ENCOUNTER → 2022-01-03 02:26 | Outpatient (CLI) | payer OTHER, SELFPAY ==
--- NOTE | 2022-01-03 10:43 | DI.RAD_ITS ---
Exam(s) XR CHEST 2V PA LATERAL EXAM: XR CHEST 2V PA LATERAL CLINICAL HISTORY: F/U ABNL XRAY,INFILTRATE,R91.8 TECHNIQUE: 2D digital imaging was performed of the chest. Two images were obtained. PA and lateral views were obtained. COMPARISON: CR,XR XR CHEST 2V PA LATERAL from 12/05/[address] CHEST WO from 12/06/2021 FINDINGS: MEDIASTINUM: Normal. HEART: Normal. PULMONARY VASCULATURE: Normal. LUNGS: No acute infiltrates are seen. PLEURAL SPACE: No pleural effusion or pneumothorax. BONE:Within normal limits for the patient's age. OTHER FINDINGS:Normal. IMPRESSION: No acute pulmonary findings. DATA REPOSITORY: RADIATION DOSE DELIVERED:
== END ==
PROVIDERS: Visit Provider Nurse Practitioner Family
DX: R91.8 Other nonspecific abnormal finding of lung field (principal)
CPT/HCPCS: 71046